=== PATIENT | female | born 1965 | race Caucasian/White ===

== ENCOUNTER 2023-05-28 15:26 | Emergency (ER) | payer OTHER ==
[~2023-05-28] VITALS: Ht 165.1 cm; Wt 61.2 kg
[2023-05-28 15:34] VITALS: BP_SYST 152; PULSE 69; RESP 16; TEMP 98.1; O2SAT 96
[2023-05-28] MEDS ORDERED: NACL 0.9% 1,000 ML IV ONE ×2 (16:00→17:15)
[2023-05-28 16:36] LABS: BASOPHILS # (AUTO) 0.1 K/uL (0.0-0.2); BASOPHILS % (AUTO) 0.7 % (0.0-2.0); EOSINOPHILS # (AUTO) 0.2 K/uL (0.0-0.4); EOSINOPHILS % (AUTO) 2.1 % (0.0-4.0); HEMATOCRIT 38.9 % (36-48); HEMOGLOBIN 13.1 g/dL (12.0-16.0); LYMPHOCYTES # (AUTO) 1.7 K/uL (1.0-5.5); LYMPHOCYTES % (AUTO) 19.5 % (20.5-51.5); MEAN CORPUSCULAR HEMOGLOBIN 32 pg (27-31); MEAN CORPUSCULAR HGB CONC 34 % (32-36); MEAN CORPUSCULAR VOLUME 93 fL (79.0-98.0); MONOCYTES # (AUTO) 0.5 K/uL (0.0-1.0); NEUTROPHILS # (AUTO) 6.1 K/uL (1.8-7.7); NEUTROPHILS % (AUTO) 71.7 % (40.0-70.0); PLATELET COUNT (AUTO) 301 K/uL (130-430); RED BLOOD CELL COUNT(AUTO) 4.17 MIL/uL (4.2-6.2); RED CELL DISTRIBUTION WIDTH 12.9 % (9.0-15.0); WHITE BLOOD COUNT (AUTO) 8.5 K/uL (4.8-10.8)
[2023-05-28 16:47] LABS: INR 0.9 (0.8-1.2); PROTHROMBIN TIME 9.7 SECS (9.5-12.5)
[2023-05-28 16:54] LABS: ALANINE AMINOTRANSFERASE 22 U/L (12-78); ALBUMIN 3.3 g/dL (3.4-4.8); ANION GAP 13 (5-15); ASPARTATE AMINOTRANSFERASE 17 U/L (10-37); CALCIUM 9.4 mg/dL (8.4-11.0); CARBON DIOXIDE 24 mmol/L (23-29); CHLORIDE 99 mmol/L (98-107); CREATININE 0.97 mg/dL (0.55-1.30); GFR AFRICAN AMERICAN 76 mL/min (>90); GLUCOSE 116 mg/dL (74-106); SODIUM SERUM 136 mmol/L (136-145); TOTAL BILIRUBIN 0.3 mg/dL (0.0-1.0); TOTAL PROTEIN, SERUM 6.9 g/dL (6.4-8.3); UREA NITROGEN, BLOOD 9 mg/dL (8-21)
[2023-05-28 17:02] LABS: ALCOHOL, BLOOD < 3 mg/dL (<10); GFR NON AFRICAN-AMERICAN 62 mL/min (>90)
[2023-05-28 17:04] LABS: POTASSIUM 2.5 mmol/L (3.5-5.1)
[2023-05-28] MEDS ORDERED: POTASSIUM CHLORIDE 40 MEQ in NS 250 ML IV ONE (17:15)
[2023-05-28] MEDS ORDERED: POTASSIUM CHLORIDE 20 MEQ TAB.PRT.SR PO ONE (17:15)
[2023-05-28] MEDS ORDERED: MAGNESIUM SULFATE 50 ML IV ONE (17:15)
[2023-05-28 17:56] LABS: BILIRUBIN,URINE NEGATIVE (NEGATIVE); CLARITY/URINE CLEAR (CLEAR); COLOR,URINE YELLOW (YELLOW); GLUCOSE,URINE TRACE (NEGATIVE); KETONES,URINE NEGATIVE (NEGATIVE); LEUKOCYTE ESTERASE ,URINE NEGATIVE (NEGATIVE); NITRITE, URINE NEGATIVE (NEGATIVE); PH,URINE 7.5 (5.0-8.0); PROTEIN URINE NEGATIVE (NEGATIVE); UROBILINOGEN,URINE 0.2 (0.2-1.0)
[2023-05-28 17:57] LABS: BLOOD, URINE TRACE (NEGATIVE)
[2023-05-28 18:07] LABS: RBC,URINE NONE SEEN /HPF (0-3); WBC,URINE 0-3 /HPF (0-3)
[2023-05-28 18:08] LABS: BACTERIA,URINE RARE /HPF (None Seen); MUCUS,URINE None Seen /LPF (None Seen)
[2023-05-28 18:09] LABS: BARBITURATE, URINE NEGATIVE (NEG <=200); BENZODIAZEPINE, URINE NEGATIVE (NEG <=150); CANNABINOID, URINE NEGATIVE (NEG <=50); COCAINE, URINE NEGATIVE (NEG <=150); METHAMPHETAMINES SCREEN,URINE NEGATIVE (NEG <=500); OPIATE, URINE NEGATIVE (NEG <=100); PHENCYCLIDINE SCREEN,URINE NEGATIVE (NEG <=25); UR TRICYCLIC ANTIDEPRESSANTS NEGATIVE (NEG <=300); URINE AMPHETAMINE NEGATIVE (NEG <=500); URINE METHADONE NEGATIVE (NEG <=200); URINE OXYCODONE SCREEN NEGATIVE (NEG <=100); URINE PROPOXYPHENE SCREEN NEGATIVE (NEG <=300)
[2023-05-28] MEDS ORDERED: CEPH-548 PO (20:05)
[2023-05-28 22:55] VITALS: BP_SYST 123; PULSE 75; RESP 16; TEMP 98.3; O2SAT 100
== END 2023-05-28 22:55 | disposition home or self-care (01) ==
LOC: SED 15:26
DX: R56.9 Unspecified convulsions (principal); E87.6 Hypokalemia; E11.9 Type 2 diabetes mellitus without complications; Z79.899 Other long term (current) drug therapy
CPT/HCPCS: 99285; 96365; 96366; 70450; 71045; 96361; 80307; 80053; 85025; 85610; 85730; 84484; 36415; 93005; 76376; 96368; 81000; 84132; 81001; 81015; J3475; J3480; J7050; J7030; G0482